=== PATIENT | male | born 1945 | race Caucasian/White ===

== ENCOUNTER 2019-10-12 10:13 | Outpatient (CLI) | payer MEDICARE, SELFPAY ==
[2019-10-12 10:34] LABS: Basophils Absolute Auto 0.06 K/mm3 (0.00-0.10); Basophils Percent Auto 0.8 % (0.0-1.0); Eosinophils Absolute Auto 0.54 K/mm3 (0.02-0.50); Eosinophils Percent Auto 7.2 % (1.0-6.0); Hematocrit 41.2 % (37.0-46.0); Hemoglobin 13.9 g/dL (12.4-15.3); Immature Granulocyte Absolute 0.02 K/mm3 (0.00-0.00); Immature Granulocyte Percent A 0.3 % (0.0-0.0); Lymphocytes Absolute Auto 1.64 K/mm3 (1.10-4.50); Lymphocytes Percent Auto 21.9 % (18.0-42.0); Mean Corpuscular HGB Conc 33.7 g/dL (32.0-36.0); Mean Corpuscular Hemoglobin 31.6 pg (27.0-31.0); Mean Corpuscular Volume 93.6 fL (78.0-102.0); Mean Platelet Volume 9.7 fl (8.7-11.0); Monocytes Percent Auto 9.4 % (2.0-11.0); Neutrophils Absolute Auto 4.5 K/mm3 (1.7-7.2); Neutrophils Percent Auto 60.4 % (50.0-70.0); Platelet Count Result 277 K/mm3 (150-420); Red Cell Distribution Width 13.3 % (11.6-14.4); White Blood Count 7.5 K/mm3 (4.8-10.8)
[2019-10-12 10:38] LABS: Add Urine Microscopic? NO; Appearance Urine Clear (Clear); Bilirubin Urine Negative (Negative); Blood Urine Negative (Negative); Color Urine Yellow (Yellow); Glucose Urine UA Negative (Negative); Ketones Urine Negative (Negative); Leukocyte Esterase Ur Negative LEU/UL (Negative); Nitrate Urine Negative (Negative); Protein Urine Negative (Negative); Urobilinogen Urine 0.2 mg/dL (0.2-1.0); pH Urine 6.5 (5.0-8.0)
[2019-10-12 11:25] LABS: Alanine Aminotransferase 18 U/L (16-63); Albumin Level 4.3 g/dL (3.4-5.0); Alkaline Phosphatase 92 U/L (46-116); Anion Gap 13.4 mmol/L (7-16); Aspartate Amino Transferase 17 U/L (15-37); Bilirubin,Total 0.5 mg/dL (0.00-1.00); Blood Urea Nitrogen 25 mg/dL (7-18); Calcium 8.9 mg/dL (8.5-10.1); Carbon Dioxide 28 mmol/L (21-32); Chloride 105 mmol/L (98-108); Cholesterol 141 mg/dL (0-200); Estimated Glomerular Filt Rate > 60; Glucose 98 mg/dL (70-99); HDL Direct 53 mg/dL (40-60); LDL Cholesterol Calculated 77 mg/dL (<130); Osmolality Calculated 298 mOsm/kg (285-295); Potassium 4.4 mmol/L (3.5-5.1); Prostate Specific Antigen 0.5 ng/mL (< OR = 4.0); Sodium 142 mmol/L (136-145); Total Protein 7.8 g/dL (6.4-8.2); Triglycerides 54 mg/dL (0-150)
[2019-10-16 14:34] LABS: Testosterone Free 29.9 pg/mL (30.0-135.0); Testosterone Total 388 ng/dL (250-1100)
== END 2019-10-12 10:14 | disposition home or self-care (01) ==
LOC: CHSLAB 10:21
PROVIDERS: PCP Internal Medicine; Visit Provider Internal Medicine
DX: E78.5 Hyperlipidemia, unspecified (principal); I10 Essential (primary) hypertension; Z12.5 Encounter for screening for malignant neoplasm of prostate
CPT/HCPCS: 36415; 80053; 80061; 81003; 84153; 84402; 84403; 85025; G0103

== ENCOUNTER 2020-01-13 13:30 | Outpatient (CLI) | payer MEDICARE, SELFPAY ==
[2020-01-18 12:04] LABS: Testosterone Free 39.5 pg/mL (30.0-135.0); Testosterone Total 395 ng/dL (250-1100)
== END 2020-01-13 13:31 | disposition home or self-care (01) ==
LOC: CHSLAB 13:32
PROVIDERS: PCP Internal Medicine; Visit Provider Internal Medicine
DX: E29.1 Testicular hypofunction (principal)
CPT/HCPCS: 36415; 84402; 84403

== ENCOUNTER 2020-10-26 09:19 | Outpatient (CLI) | payer MEDICARE, SELFPAY ==
[2020-10-26 09:37] LABS: Hematocrit 45.6 % (37.0-46.0); Hemoglobin 15.5 g/dL (12.4-15.3); Mean Corpuscular Hemoglobin 32.2 pg (27.0-31.0); Mean Corpuscular Volume 94.8 fL (78.0-102.0); Mean Platelet Volume 9.4 fl (8.7-11.0); Platelet Count Result 239 K/mm3 (150-420); Red Blood Count 4.81 M/mm3 (4.70-6.10); Red Cell Distribution Width 13.1 % (11.6-14.4); White Blood Count 5.6 K/mm3 (4.8-10.8)
[2020-10-26 09:38] LABS: Add Urine Microscopic? NO; Appearance Urine Clear (Clear); Bilirubin Urine Negative (Negative); Blood Urine Negative (Negative); Color Urine Yellow (Yellow); Glucose Urine UA Negative (Negative); Ketones Urine Negative (Negative); Leukocyte Esterase Ur Negative LEU/UL (Negative); Nitrate Urine Negative (Negative); Protein Urine Negative (Negative); Specific Grav Ur 1.025 (1.010-1.020); Urobilinogen Urine 0.2 mg/dL (0.2-1.0)
[2020-10-26 10:03] LABS: Band Neutrophils Percent 0 % (0-6); Eosinophils Percent Manual 9 % (1-6); Lymphocytes Absolute Manual 1.28 K/mm3 (1.1-4.5); Lymphocytes Percent Manual 23 % (18-44); Monocytes Absolute Manual 1.06 K/mm3 (0.1-0.90); Monocytes Percent Manual 19 % (3-9); Neutrophils Percent Manual 50 % (46-73); Platelet Estimate Adequate (Adequate); Total Cells Counted 100
[2020-10-26 10:24] LABS: Alanine Aminotransferase 27 U/L (16-63); Albumin Level 4.1 g/dL (3.4-5.0); Alkaline Phosphatase 95 U/L (46-116); Anion Gap 9 mmol/L (8-16); Aspartate Amino Transferase 21 U/L (15-37); Bilirubin,Total 0.3 mg/dL (0.00-1.00); Blood Urea Nitrogen 26 mg/dL (7-18); Calcium 9.4 mg/dL (8.5-10.1); Carbon Dioxide 27 mmol/L (21-32); Chloride 101 mmol/L (98-108); Cholesterol 141 mg/dL (0-200); Creatine Kinase 79 U/L (39-308); Estimated Glomerular Filt Rate > 60; Glucose 101 mg/dL (70-99); HDL Direct 43 mg/dL (40-60); LDL Cholesterol Calculated 84 mg/dL (<130); Osmolality Calculated 288 mOsm/kg (285-295); Potassium 4.4 mmol/L (3.5-5.1); Prostate Specific Antigen 0.9 ng/mL (< OR = 4.0); Sodium 137 mmol/L (136-145); Total Protein 7.3 g/dL (6.4-8.2); Triglycerides 71 mg/dL (0-150)
[2020-10-30 12:50] LABS: Testosterone Free 22.3 pg/mL (30.0-135.0); Testosterone Total 265 ng/dL (250-1100)
== END 2020-10-26 09:20 | disposition home or self-care (01) ==
LOC: CHSLAB 09:21
PROVIDERS: PCP Internal Medicine; Visit Provider Internal Medicine
DX: E78.5 Hyperlipidemia, unspecified (principal); I10 Essential (primary) hypertension; E29.1 Testicular hypofunction; R31.29 Other microscopic hematuria; Z12.5 Encounter for screening for malignant neoplasm of prostate
CPT/HCPCS: 36415; 80053; 80061; 81003; 82550; 84153; 84402; 84403; 85025; G0103

== ENCOUNTER 2020-11-06 14:57 | Outpatient (CLI) | payer MEDICARE, SELFPAY ==
--- NOTE | ~2020-11-06 | XR_ITS ---
XR lumbar spine 2-3V, XR sacroiliac joints min 3V 11/06/2020 15:16 Indication: Low back pain Procedure: 3 views lumbar spine and 4 views of the sacroiliac joints Comparison: Lumbar spine series dated 04/26/2008 Findings: There is dextroscoliosis centered at L3. There is wedge compression deformity at T12 and L1 which appears chronic. Mild chronic superior endplate compression deformity of L2. There is disc danni rowing at L3-4 and L5-S1. There is moderate lower lumbar facet hypertrophy. No significant abnormalit y of the sacroiliac joints. No evidence for ankylosis or ostial lysis. Sacral foramen are symmetric. Impression: 1: Moderate lumbar spondylosis with dextroscoliosis. 2: Mild wedge compression deformities of T12, L1 and L2, likely chronic. Reviewed, dictated and finalized at location A. LUTE PROFESSIONAL Impression: 1: Moderate lumbar spondylosis with dextroscoliosis. 2: Mild wedge compression deformities of T12, L1 and L2, likely chronic. Impression: 1: Moderate lumbar spondylosis with dextroscoliosis. 2: Mild wedge compression deformities of T12, L1 and L2, likely chronic.
== END 2020-11-06 14:58 | disposition home or self-care (01) ==
LOC: CHSIMG 15:00
PROVIDERS: PCP Internal Medicine; Visit Provider Internal Medicine
DX: M54.5 Low back pain (principal)
CPT/HCPCS: 72100; 72202

== ENCOUNTER 2021-04-16 13:48 | Outpatient (CLI) | payer MEDICARE, SELFPAY ==
[2021-04-16 14:07] LABS: Basophils Absolute Auto 0.07 K/mm3 (0.00-0.10); Basophils Percent Auto 0.8 % (0.0-1.0); Eosinophils Absolute Auto 0.58 K/mm3 (0.02-0.50); Eosinophils Percent Auto 6.3 % (1.0-6.0); Hematocrit 44.5 % (37.0-46.0); Hemoglobin 14.8 g/dL (12.4-15.3); Immature Granulocyte Absolute 0.04 K/mm3 (0.00-0.00); Immature Granulocyte Percent A 0.4 % (0.0-0.0); Lymphocytes Percent Auto 18.5 % (18.0-42.0); Mean Corpuscular HGB Conc 33.3 g/dL (32.0-36.0); Mean Corpuscular Hemoglobin 31.9 pg (27.0-31.0); Mean Corpuscular Volume 95.9 fL (78.0-102.0); Mean Platelet Volume 9.4 fl (8.7-11.0); Monocytes Absolute Auto 0.93 K/mm3 (0.10-0.90); Monocytes Percent Auto 10.1 % (2.0-11.0); Neutrophils Absolute Auto 5.9 K/mm3 (1.7-7.2); Neutrophils Percent Auto 63.9 % (50.0-70.0); Platelet Count Result 281 K/mm3 (150-420); Red Blood Count 4.64 M/mm3 (4.70-6.10); Red Cell Distribution Width 13.4 % (11.6-14.4); White Blood Count 9.2 K/mm3 (4.8-10.8)
[2021-04-16 15:10] LABS: Alanine Aminotransferase 20 U/L (16-63); Albumin Level 4.1 g/dL (3.4-5.0); Alkaline Phosphatase 96 U/L (46-116); Anion Gap 12 mmol/L (8-16); Aspartate Amino Transferase 17 U/L (15-37); Bilirubin,Total 0.3 mg/dL (0.00-1.00); Blood Urea Nitrogen 30 mg/dL (7-18); Calcium 9.3 mg/dL (8.5-10.1); Carbon Dioxide 25 mmol/L (21-32); Chloride 106 mmol/L (98-108); Cholesterol 132 mg/dL (0-200); Estimated Glomerular Filt Rate > 60; Glucose 90 mg/dL (70-99); HDL Direct 47 mg/dL (40-60); LDL Cholesterol Calculated 74 mg/dL (<130); Osmolality Calculated 302 mOsm/kg (285-295); Potassium 4.6 mmol/L (3.5-5.1); Sodium 143 mmol/L (136-145); Total Protein 7.4 g/dL (6.4-8.2); Triglycerides 57 mg/dL (0-150)
[2021-04-16 15:11] LABS: Add Urine Microscopic? NO; Appearance Urine Clear (Clear); Bilirubin Urine Negative (Negative); Blood Urine Negative (Negative); Color Urine Light Yellow (Yellow); Glucose Urine UA Negative (Negative); Ketones Urine Negative (Negative); Leukocyte Esterase Ur Negative (Negative); Nitrate Urine Negative (Negative); Protein Urine Negative (Negative); Urobilinogen Urine 0.2 mg/dL (0.2-1.0)
[2021-04-20 16:11] LABS: Testosterone Free 28.4 pg/mL (30.0-135.0); Testosterone Total 296 ng/dL (250-1100)
== END 2021-04-16 13:49 | disposition home or self-care (01) ==
LOC: CHSLAB 13:50
PROVIDERS: PCP Internal Medicine; Visit Provider Internal Medicine
DX: E78.2 Mixed hyperlipidemia (principal); I10 Essential (primary) hypertension
CPT/HCPCS: 36415; 80053; 80061; 81003; 84402; 84403; 85025

== ENCOUNTER 2021-10-11 10:03 | Outpatient (CLI) | payer MEDICARE, SELFPAY ==
[2021-10-11 10:32] LABS: Basophils Absolute Auto 0.08 K/mm3 (0.00-0.10); Basophils Percent Auto 0.9 % (0.0-1.0); Eosinophils Absolute Auto 0.54 K/mm3 (0.02-0.50); Eosinophils Percent Auto 5.8 % (1.0-6.0); Hematocrit 47.6 % (37.0-46.0); Hemoglobin 15.5 g/dL (12.4-15.3); Immature Granulocyte Absolute 0.04 K/mm3 (0.00-0.00); Immature Granulocyte Percent A 0.4 % (0.0-0.0); Lymphocytes Absolute Auto 1.48 K/mm3 (1.10-4.50); Mean Corpuscular HGB Conc 32.6 g/dL (32.0-36.0); Mean Corpuscular Hemoglobin 31.4 pg (27.0-31.0); Mean Corpuscular Volume 96.6 fL (78.0-102.0); Mean Platelet Volume 9.3 fl (8.7-11.0); Monocytes Absolute Auto 1.01 K/mm3 (0.10-0.90); Monocytes Percent Auto 10.9 % (2.0-11.0); Neutrophils Absolute Auto 6.1 K/mm3 (1.7-7.2); Platelet Count Result 264 K/mm3 (150-420); Red Blood Count 4.93 M/mm3 (4.70-6.10); Red Cell Distribution Width 14.4 % (11.6-14.4); White Blood Count 9.2 K/mm3 (4.8-10.8)
[2021-10-11 10:46] LABS: Add Urine Microscopic? NO; Appearance Urine Clear (Clear); Bilirubin Urine Negative (Negative); Blood Urine Negative (Negative); Color Urine Light Yellow (Yellow); Glucose Urine UA Negative (Negative); Ketones Urine Negative (Negative); Leukocyte Esterase Ur Negative (Negative); Nitrate Urine Negative (Negative); Protein Urine Negative (Negative); Specific Grav Ur 1.025 (1.010-1.020); Urobilinogen Urine 0.2 mg/dL (0.2-1.0)
[2021-10-11 11:26] LABS: Alanine Aminotransferase 20 U/L (16-63); Albumin Level 4.3 g/dL (3.4-5.0); Alkaline Phosphatase 92 U/L (46-116); Anion Gap 9 mmol/L (8-16); Aspartate Amino Transferase 15 U/L (15-37); Bilirubin,Total 0.5 mg/dL (0.00-1.00); Blood Urea Nitrogen 25 mg/dL (7-18); Calcium 9.3 mg/dL (8.5-10.1); Carbon Dioxide 29 mmol/L (21-32); Chloride 101 mmol/L (98-108); Cholesterol 147 mg/dL (0-200); Creatine Kinase 123 U/L (39-308); Estimated Glomerular Filt Rate > 60; Glucose 97 mg/dL (70-99); HDL Direct 48 mg/dL (40-60); LDL Cholesterol Calculated 89 mg/dL (<130); Osmolality Calculated 292 mOsm/kg (285-295); Potassium 4.5 mmol/L (3.5-5.1); Sodium 139 mmol/L (136-145); Total Protein 7.7 g/dL (6.4-8.2); Triglycerides 51 mg/dL (0-150)
[2021-10-15 14:49] LABS: Testosterone Free 77.1 pg/mL (30.0-135.0); Testosterone Total 707 ng/dL (250-1100)
== END 2021-10-11 10:04 | disposition home or self-care (01) ==
LOC: CHSLAB 10:04
PROVIDERS: PCP Internal Medicine; Visit Provider Internal Medicine
DX: E78.2 Mixed hyperlipidemia (principal); I10 Essential (primary) hypertension; I25.10 Atherosclerotic heart disease of native coronary artery without angina pectoris; Z12.5 Encounter for screening for malignant neoplasm of prostate
CPT/HCPCS: 36415; 80053; 80061; 81003; 82550; 84153; 84402; 84403; 85025; G0103

== ENCOUNTER 2022-04-17 09:40 | Outpatient (CLI) | payer MEDICARE, SELFPAY ==
[2022-04-17 09:56] LABS: Add Urine Microscopic? NO; Appearance Urine Clear (Clear); Basophils Absolute Auto 0.08 K/mm3 (0.00-0.10); Basophils Percent Auto 1.1 % (0.0-1.0); Bilirubin Urine Negative (Negative); Blood Urine Negative (Negative); Color Urine Light Yellow (Yellow); Eosinophils Absolute Auto 0.49 K/mm3 (0.02-0.50); Eosinophils Percent Auto 6.8 % (1.0-6.0); Glucose Urine UA Negative (Negative); Hematocrit 45.6 % (37.0-46.0); Immature Granulocyte Absolute 0.02 K/mm3 (0.00-0.00); Immature Granulocyte Percent A 0.3 % (0.0-0.0); Ketones Urine Negative (Negative); Leukocyte Esterase Ur Negative (Negative); Lymphocytes Absolute Auto 1.49 K/mm3 (1.10-4.50); Lymphocytes Percent Auto 20.7 % (18.0-42.0); Mean Corpuscular HGB Conc 32.9 g/dL (32.0-36.0); Mean Corpuscular Hemoglobin 32.1 pg (27.0-31.0); Mean Corpuscular Volume 97.4 fL (78.0-102.0); Mean Platelet Volume 9.5 fl (8.7-11.0); Monocytes Percent Auto 11.1 % (2.0-11.0); Neutrophils Absolute Auto 4.3 K/mm3 (1.7-7.2); Nitrate Urine Negative (Negative); Platelet Count Result 249 K/mm3 (150-420); Protein Urine Negative (Negative); Red Blood Count 4.68 M/mm3 (4.70-6.10); Red Cell Distribution Width 14.6 % (11.6-14.4); White Blood Count 7.2 K/mm3 (4.8-10.8)
[2022-04-17 10:31] LABS: Alanine Aminotransferase 14 U/L (16-63); Albumin Level 4.1 g/dL (3.4-5.0); Alkaline Phosphatase 96 U/L (46-116); Anion Gap 3 mmol/L (8-16); Aspartate Amino Transferase 14 U/L (15-37); Bilirubin,Total 0.4 mg/dL (0.00-1.00); Blood Urea Nitrogen 25 mg/dL (7-18); Calcium 9.1 mg/dL (8.5-10.1); Carbon Dioxide 31 mmol/L (21-32); Chloride 105 mmol/L (98-108); Cholesterol 128 mg/dL (0-200); Creatine Kinase 88 U/L (39-308); Estimated Glomerular Filt Rate 55; Glucose 100 mg/dL (70-99); HDL Direct 51 mg/dL (40-60); LDL Cholesterol Calculated 68 mg/dL (<130); Osmolality Calculated 292 mOsm/kg (285-295); Potassium 5.1 mmol/L (3.5-5.1); Sodium 139 mmol/L (136-145); Total Protein 7.5 g/dL (6.4-8.2); Triglycerides 47 mg/dL (0-150)
[2022-04-22 17:44] LABS: Testosterone Free 84.3 pg/mL (30.0-135.0); Testosterone Total 733 ng/dL (250-1100)
== END 2022-04-17 09:41 | disposition home or self-care (01) ==
LOC: CHSLAB 09:41
PROVIDERS: PCP Internal Medicine; Visit Provider Internal Medicine
DX: E78.2 Mixed hyperlipidemia (principal); I10 Essential (primary) hypertension
CPT/HCPCS: 36415; 80053; 80061; 81003; 82550; 84402; 84403; 85025

== ENCOUNTER 2022-10-16 09:42 | Outpatient (CLI) | payer MEDICARE, SELFPAY ==
[2022-10-16 10:03] LABS: Basophils Absolute Auto 0.08 K/mm3 (0.00-0.10); Basophils Percent Auto 1.3 % (0.0-1.0); Eosinophils Absolute Auto 0.45 K/mm3 (0.02-0.50); Hematocrit 44.2 % (37.0-46.0); Hemoglobin 14.7 g/dL (12.4-15.3); Immature Granulocyte Absolute 0.02 K/mm3 (0.00-0.00); Immature Granulocyte Percent A 0.3 % (0.0-0.0); Lymphocytes Absolute Auto 1.54 K/mm3 (1.10-4.50); Lymphocytes Percent Auto 24.1 % (18.0-42.0); Mean Corpuscular HGB Conc 33.3 g/dL (32.0-36.0); Mean Corpuscular Hemoglobin 32.8 pg (27.0-31.0); Mean Corpuscular Volume 98.7 fL (78.0-102.0); Mean Platelet Volume 9.5 fl (8.7-11.0); Monocytes Absolute Auto 0.58 K/mm3 (0.10-0.90); Monocytes Percent Auto 9.1 % (2.0-11.0); Neutrophils Absolute Auto 3.7 K/mm3 (1.7-7.2); Neutrophils Percent Auto 58.2 % (50.0-70.0); Platelet Count Result 229 K/mm3 (150-420); Red Blood Count 4.48 M/mm3 (4.70-6.10); Red Cell Distribution Width 13.3 % (11.6-14.4); White Blood Count 6.4 K/mm3 (4.8-10.8)
[2022-10-16 10:07] LABS: Add Urine Microscopic? NO; Appearance Urine Clear (Clear); Bilirubin Urine Negative (Negative); Blood Urine Negative (Negative); Color Urine Light Yellow (Yellow); Glucose Urine UA Negative (Negative); Ketones Urine Negative (Negative); Leukocyte Esterase Ur Negative (Negative); Nitrate Urine Negative (Negative); Protein Urine Negative (Negative); Specific Grav Ur >= 1.030 (1.010-1.020); Urobilinogen Urine 0.2 mg/dL (0.2-1.0)
[2022-10-16 11:06] LABS: Alanine Aminotransferase 15 U/L (16-63); Albumin Level 4.2 g/dL (3.4-5.0); Alkaline Phosphatase 97 U/L (46-116); Anion Gap 6 mmol/L (8-16); Aspartate Amino Transferase 25 U/L (15-37); Bilirubin,Total 0.5 mg/dL (0.00-1.00); Blood Urea Nitrogen 30 mg/dL (7-18); Carbon Dioxide 30 mmol/L (21-32); Chloride 102 mmol/L (98-108); Cholesterol 146 mg/dL (0-200); Estimated Glomerular Filt Rate > 60; Glucose 97 mg/dL (70-99); HDL Direct 49 mg/dL (40-60); LDL Cholesterol Calculated 85 mg/dL (<130); Osmolality Calculated 292 mOsm/kg (285-295); Potassium 4.3 mmol/L (3.5-5.1); Prostate Specific Antigen 0.8 ng/mL (< OR = 4.0); Sodium 138 mmol/L (136-145); Total Protein 7.3 g/dL (6.4-8.2); Triglycerides 62 mg/dL (0-150)
[2022-10-23 13:15] LABS: Testosterone Free 29.2 pg/mL (30.0-135.0); Testosterone Total 361 ng/dL (250-1100)
== END 2022-10-16 09:43 | disposition home or self-care (01) ==
LOC: CHSLAB 09:43
PROVIDERS: PCP Internal Medicine; Visit Provider Internal Medicine
DX: E29.1 Testicular hypofunction (principal); E78.2 Mixed hyperlipidemia; I10 Essential (primary) hypertension; Z12.5 Encounter for screening for malignant neoplasm of prostate
CPT/HCPCS: 36415; 80053; 80061; 81003; 84153; 84402; 84403; 85025; G0103

== ENCOUNTER 2023-04-11 09:43 | Outpatient (CLI) | payer MEDICARE, SELFPAY ==
[2023-04-11 10:06] LABS: Basophils Percent Auto 1.4 % (0.0-1.0); Eosinophils Absolute Auto 0.49 K/mm3 (0.02-0.50); Eosinophils Percent Auto 6.9 % (1.0-6.0); Hematocrit 48.3 % (37.0-46.0); Hemoglobin 16.1 g/dL (12.4-15.3); Immature Granulocyte Absolute 0.03 K/mm3 (0.00-0.00); Immature Granulocyte Percent A 0.4 % (0.0-0.0); Lymphocytes Absolute Auto 1.49 K/mm3 (1.10-4.50); Mean Corpuscular HGB Conc 33.3 g/dL (32.0-36.0); Mean Corpuscular Hemoglobin 32.5 pg (27.0-31.0); Mean Corpuscular Volume 97.6 fL (78.0-102.0); Mean Platelet Volume 9.6 fl (8.7-11.0); Monocytes Absolute Auto 0.66 K/mm3 (0.10-0.90); Monocytes Percent Auto 9.3 % (2.0-11.0); Neutrophils Absolute Auto 4.3 K/mm3 (1.7-7.2); Platelet Count Result 237 K/mm3 (150-420); Red Blood Count 4.95 M/mm3 (4.70-6.10); Red Cell Distribution Width 14.6 % (11.6-14.4); White Blood Count 7.1 K/mm3 (4.8-10.8)
[2023-04-11 10:07] LABS: Appearance Urine Clear (Clear); Bilirubin Urine Negative (Negative); Blood Urine Negative (Negative); Color Urine Light Yellow (Yellow); Glucose Urine UA Negative (Negative); Ketones Urine Negative (Negative); Leukocyte Esterase Ur Negative (Negative); Nitrate Urine Negative (Negative); Protein Urine Negative (Negative); Specific Grav Ur 1.025 (1.010-1.020); Urobilinogen Urine 0.2 mg/dL (0.2-1.0)
[2023-04-11 10:13] LABS: Add Urine Microscopic? NO
[2023-04-11 10:28] LABS: Hemoglobin A1C 5.4 % (<5.7)
[2023-04-11 11:04] LABS: Albumin Level 4.4 g/dL (3.4-5.0); Alkaline Phosphatase 104 U/L (46-116); Anion Gap 9 mmol/L (8-16); Aspartate Amino Transferase 17 U/L (15-37); Bilirubin,Total 0.7 mg/dL (0.00-1.00); Blood Urea Nitrogen 35 mg/dL (7-18); Calcium 9.4 mg/dL (8.5-10.1); Carbon Dioxide 29 mmol/L (21-32); Chloride 105 mmol/L (98-108); Cholesterol 160 mg/dL (0-200); Creatine Kinase 86 U/L (39-308); Estimated Glomerular Filt Rate 56; Free T3 2.12 pg/mL (2.18-3.98); Free T4 Free Thyroxine 0.87 ng/dL (0.76-1.46); Glucose 95 mg/dL (70-99); HDL Direct 58 mg/dL (40-60); LDL Cholesterol Calculated 93 mg/dL (<130); Osmolality Calculated 304 mOsm/kg (285-295); Potassium 4.7 mmol/L (3.5-5.1); Sodium 143 mmol/L (136-145); Thyroid Stimulating Hormone 1.91 uIU/mL (0.36-3.74); Total Protein 7.7 g/dL (6.4-8.2); Triglycerides 47 mg/dL (0-150)
[2023-04-11 11:13] LABS: Alanine Aminotransferase 13 U/L (16-63)
[2023-04-16 15:31] LABS: Testosterone Total 423 ng/dL (250-1100)
== END 2023-04-11 09:44 | disposition home or self-care (01) ==
LOC: CHSLAB 09:45
PROVIDERS: PCP Internal Medicine; Visit Provider Internal Medicine
DX: E78.2 Mixed hyperlipidemia (principal); I10 Essential (primary) hypertension; E29.0 Testicular hyperfunction; I25.10 Atherosclerotic heart disease of native coronary artery without angina pectoris; R73.01 Impaired fasting glucose
CPT/HCPCS: 36415; 80053; 80061; 81003; 82550; 83036; 84402; 84403; 84439; 84443; 84481; 85025

== ENCOUNTER 2023-10-15 09:22 | Outpatient (CLI) | payer MEDICARE, SELFPAY ==
[2023-10-15 09:38] LABS: Basophils Absolute Auto 0.08 K/mm3 (0.00-0.10); Basophils Percent Auto 0.9 % (0.0-1.0); Eosinophils Absolute Auto 0.58 K/mm3 (0.02-0.50); Eosinophils Percent Auto 6.7 % (1.0-6.0); Hematocrit 47.5 % (37.0-46.0); Hemoglobin 15.8 g/dL (12.4-15.3); Immature Granulocyte Absolute 0.04 K/mm3 (0.00-0.00); Immature Granulocyte Percent A 0.5 % (0.0-0.0); Lymphocytes Absolute Auto 1.58 K/mm3 (1.10-4.50); Lymphocytes Percent Auto 18.3 % (18.0-42.0); Mean Corpuscular HGB Conc 33.3 g/dL (32.0-36.0); Mean Corpuscular Hemoglobin 32.2 pg (27.0-31.0); Mean Corpuscular Volume 96.7 fL (78.0-102.0); Mean Platelet Volume 9.7 fl (8.7-11.0); Monocytes Absolute Auto 0.76 K/mm3 (0.10-0.90); Monocytes Percent Auto 8.8 % (2.0-11.0); Neutrophils Absolute Auto 5.6 K/mm3 (1.7-7.2); Neutrophils Percent Auto 64.8 % (50.0-70.0); Platelet Count Result 239 K/mm3 (150-420); Red Blood Count 4.91 M/mm3 (4.70-6.10); Red Cell Distribution Width 14.1 % (11.6-14.4); White Blood Count 8.6 K/mm3 (4.8-10.8)
[2023-10-15 09:40] LABS: Add Urine Microscopic? NO; Appearance Urine Clear (Clear); Bilirubin Urine Negative (Negative); Blood Urine Negative (Negative); Color Urine Light Yellow (Yellow); Glucose Urine UA Negative (Negative); Ketones Urine Negative (Negative); Leukocyte Esterase Ur Negative (Negative); Nitrate Urine Negative (Negative); Protein Urine Negative (Negative); Specific Grav Ur 1.025 (1.010-1.020)
[2023-10-15 10:30] LABS: Alanine Aminotransferase 18 U/L (16-63); Alkaline Phosphatase 89 U/L (46-116); Anion Gap 5 mmol/L (8-16); Aspartate Amino Transferase 18 U/L (15-37); Bilirubin,Total 0.5 mg/dL (0.00-1.00); Blood Urea Nitrogen 32 mg/dL (7-18); Calcium 8.8 mg/dL (8.5-10.1); Carbon Dioxide 32 mmol/L (21-32); Chloride 104 mmol/L (98-108); Cholesterol 138 mg/dL (0-200); Creatine Kinase 84 U/L (39-308); Estimated Glomerular Filt Rate > 60; Glucose 97 mg/dL (70-99); HDL Direct 49 mg/dL (40-60); LDL Cholesterol Calculated 81 mg/dL (<130); Osmolality Calculated 298 mOsm/kg (285-295); Potassium 4.7 mmol/L (3.5-5.1); Prostate Specific Antigen 0.9 ng/mL (< OR = 4.0); Sodium 141 mmol/L (136-145); Total Protein 7.1 g/dL (6.4-8.2); Triglycerides 38 mg/dL (0-150)
== END 2023-10-15 09:23 | disposition home or self-care (01) ==
LOC: CHSLAB 09:23
PROVIDERS: PCP Internal Medicine; Visit Provider Internal Medicine
DX: E29.1 Testicular hypofunction (principal); I10 Essential (primary) hypertension; E78.2 Mixed hyperlipidemia; N39.0 Urinary tract infection, site not specified; Z12.5 Encounter for screening for malignant neoplasm of prostate
CPT/HCPCS: 36415; 80053; 80061; 81003; 82550; 84153; 85025; 87086; 87088; G0103

== ENCOUNTER 2024-04-09 09:39 | Outpatient (CLI) | payer MEDICARE, SELFPAY ==
[2024-04-09 10:08] LABS: Basophils Absolute Auto 0.07 K/mm3 (0.00-0.10); Basophils Percent Auto 0.9 % (0.0-1.0); Eosinophils Absolute Auto 0.55 K/mm3 (0.02-0.50); Eosinophils Percent Auto 7.3 % (1.0-6.0); Hematocrit 46.2 % (37.0-46.0); Hemoglobin 15.4 g/dL (12.4-15.3); Immature Granulocyte Absolute 0.03 K/mm3 (0.00-0.00); Immature Granulocyte Percent A 0.4 % (0.0-0.0); Lymphocytes Absolute Auto 1.43 K/mm3 (1.10-4.50); Lymphocytes Percent Auto 18.9 % (18.0-42.0); Mean Corpuscular HGB Conc 33.3 g/dL (32-36); Mean Corpuscular Hemoglobin 32.2 pg (27.0-31.0); Mean Corpuscular Volume 96.7 fL (78.0-102.0); Mean Platelet Volume 9.5 fl (8.7-11.0); Monocytes Absolute Auto 0.76 K/mm3 (0.10-0.90); Monocytes Percent Auto 10.1 % (2.0-11.0); Neutrophils Absolute Auto 4.71 K/mm3 (1.70-7.20); Neutrophils Percent Auto 62.4 % (50.0-70.0); Platelet Count Result 248 K/mm3 (150-420); Red Blood Count 4.78 M/mm3 (4.70-6.10); Red Cell Distribution Width 14.1 % (11.6-14.4); White Blood Count 7.6 K/mm3 (4.8-10.8)
[2024-04-09 10:11] LABS: Add Urine Microscopic? NO; Appearance Urine Clear (Clear); Bilirubin Urine Negative (Negative); Blood Urine Negative (Negative); Color Urine Light Yellow (Yellow); Glucose Urine UA Negative (Negative); Ketones Urine Negative (Negative); Leukocyte Esterase Ur Negative (Negative); Nitrate Urine Negative (Negative); Protein Urine Negative (Negative); Specific Grav Ur 1.015 (1.010-1.020); Urobilinogen Urine 0.2 mg/dL (0.2-1.0); pH Urine 6.5 (5.0-8.0)
[2024-04-09 11:15] LABS: Alanine Aminotransferase 18 U/L (16-63); Alkaline Phosphatase 104 U/L (46-116); Anion Gap 5 mmol/L (4-12); Aspartate Amino Transferase 15 U/L (15-37); Bilirubin,Total 0.5 mg/dL (0.00-1.00); Blood Urea Nitrogen 24 mg/dL (7-18); Calcium 9.1 mg/dL (8.5-10.1); Carbon Dioxide 33 mmol/L (21-32); Chloride 104 mmol/L (98-108); Cholesterol 145 mg/dL (0-200); Estimated Glomerular Filt Rate 59; Glucose 95 mg/dL (70-99); HDL Direct 49 mg/dL (40-60); LDL Cholesterol Calculated 86 mg/dL (<130); Osmolality Calculated 298 mOsm/kg (285-295); Potassium 4.8 mmol/L (3.5-5.1); Sodium 142 mmol/L (136-145); Total Protein 7.4 g/dL (6.4-8.2); Triglycerides 52 mg/dL (0-150)
[2024-04-15 10:04] LABS: Testosterone Free 63.2 pg/mL (30.0-135.0); Testosterone Total 564 ng/dL (250-1100)
== END 2024-04-09 09:40 | disposition home or self-care (01) ==
LOC: CHSLAB 09:41
PROVIDERS: PCP Internal Medicine; Visit Provider Internal Medicine
DX: I10 Essential (primary) hypertension (principal); E78.2 Mixed hyperlipidemia; I25.10 Atherosclerotic heart disease of native coronary artery without angina pectoris
CPT/HCPCS: 36415; 80053; 80061; 81003; 84402; 84403; 85025

== ENCOUNTER 2024-05-04 12:05 | Outpatient (CLI) | payer MEDICARE, SELFPAY ==
--- NOTE | 2024-06-23 08:19 | WPDHOLTEREM ---
Holter/Event Monitor Holter/Event Monitor Date of procedure: 05/04/24 Holter/Event Procedure: Event Monitor Indications: Bradycardia Conclusion: 1. 28 days event monitor between 05/04/24-06/02/24. There are 69 available transmissions for analysis. 2. Predominant rhythm is sinus rhythm. HR range 50-167 bpm; average HR 69 bpm. 3. There are frequent premature supraventricular complexes with total burden of 14%. No supraventricular tachycardia. 4. There are frequent premature ventricular complexes with totla burden of 11%. There are 22 episodes of ventricular tachycardia, fastest at 167 bpm and longest is 5 beats. No sustained ventricular tachycardia. 5. No significant pauses greater than 2 seconds. 6. Patient reports 5 episodes of symptoms of shortness of breath, heart racing and symptom other than listed which demonstrate sinus rhythm, HR range 66-112 bpm with all 5 episodes with PVC's.
== END 2024-05-04 12:06 | disposition home or self-care (01) ==
PROVIDERS: PCP Internal Medicine; Visit Provider Internal Medicine
DX: R00.1 Bradycardia, unspecified (principal)
CPT/HCPCS: 93270

== ENCOUNTER 2024-07-09 15:28 | Outpatient (CLI) | payer MEDICARE, SELFPAY ==
[2024-07-09 15:43] LABS: Basophils Absolute Auto 0.08 K/mm3 (0.00-0.10); Basophils Percent Auto 0.9 % (0.0-1.0); Eosinophils Absolute Auto 0.58 K/mm3 (0.02-0.50); Eosinophils Percent Auto 6.4 % (1.0-6.0); Hematocrit 48.1 % (37.0-46.0); Hemoglobin 16.2 g/dL (12.4-15.3); Immature Granulocyte Absolute 0.04 K/mm3 (0.00-0.00); Immature Granulocyte Percent A 0.4 % (0.0-0.0); Lymphocytes Percent Auto 18.8 % (18.0-42.0); Mean Corpuscular HGB Conc 33.7 g/dL (32-36); Mean Corpuscular Hemoglobin 32.2 pg (27.0-31.0); Mean Corpuscular Volume 95.6 fL (78.0-102.0); Mean Platelet Volume 9.4 fl (8.7-11.0); Monocytes Absolute Auto 0.98 K/mm3 (0.10-0.90); Monocytes Percent Auto 10.8 % (2.0-11.0); Neutrophils Absolute Auto 5.67 K/mm3 (1.70-7.20); Neutrophils Percent Auto 62.7 % (50.0-70.0); Platelet Count Result 271 K/mm3 (150-420); Red Blood Count 5.03 M/mm3 (4.70-6.10); White Blood Count 9.1 K/mm3 (4.8-10.8)
[2024-07-09 16:25] LABS: Anion Gap 9 mmol/L (4-12); Blood Urea Nitrogen 36 mg/dL (7-18); Calcium 9.5 mg/dL (8.5-10.1); Carbon Dioxide 31 mmol/L (21-32); Chloride 105 mmol/L (98-108); Estimated Glomerular Filt Rate 57; Free T4 Free Thyroxine 0.88 ng/dL (0.76-1.46); Glucose 95 mg/dL (70-99); Magnesium 2.7 mg/dL (1.8-2.4); Osmolality Calculated 308 mOsm/kg (285-295); Sodium 145 mmol/L (136-145)
== END 2024-07-09 15:29 | disposition home or self-care (01) ==
PROVIDERS: PCP Internal Medicine; Visit Provider Internal Medicine
DX: I47.29 Other ventricular tachycardia (principal); I10 Essential (primary) hypertension; E78.2 Mixed hyperlipidemia
CPT/HCPCS: 36415; 80048; 83735; 84439; 84443; 85025

== ENCOUNTER 2024-10-18 10:00 | Outpatient (CLI) | payer MEDICARE, SELFPAY ==
[2024-10-18 10:47] LABS: Hematocrit 49.3 % (37.0-46.0); Hemoglobin 16.2 g/dL (12.4-15.3); Mean Corpuscular HGB Conc 32.9 g/dL (32-36); Mean Corpuscular Hemoglobin 31.5 pg (27.0-31.0); Mean Corpuscular Volume 95.9 fL (78.0-102.0); Mean Platelet Volume 9.9 fl (8.7-11.0); Platelet Count Result 247 K/mm3 (150-420); Red Blood Count 5.14 M/mm3 (4.70-6.10); Red Cell Distribution Width 13.4 % (11.6-14.4); White Blood Count 7.3 K/mm3 (4.8-10.8)
[2024-10-18 10:50] LABS: Add Urine Microscopic? NO; Appearance Urine Clear (Clear); Bilirubin Urine Negative (Negative); Blood Urine Negative (Negative); Color Urine Light Yellow (Yellow); Glucose Urine UA Negative (Negative); Ketones Urine Negative (Negative); Leukocyte Esterase Ur Negative LEU/UL (Negative); Nitrate Urine Negative (Negative); Protein Urine Negative (Negative); Specific Grav Ur 1.015 (1.010-1.020); Urobilinogen Urine 0.2 mg/dL (0.2-1.0); pH Urine 6.5 (5.0-8.0)
[2024-10-18 11:20] LABS: Alanine Aminotransferase 19 U/L (16-63); Albumin Level 4.4 g/dL (3.4-5.0); Alkaline Phosphatase 118 U/L (46-116); Anion Gap 6 mmol/L (4-12); Aspartate Amino Transferase 18 U/L (15-37); Bilirubin,Total 0.6 mg/dL (0.00-1.00); Blood Urea Nitrogen 28 mg/dL (7-18); Calcium 9.3 mg/dL (8.5-10.1); Carbon Dioxide 31 mmol/L (21-32); Chloride 103 mmol/L (98-108); Cholesterol 172 mg/dL (0-200); Creatine Kinase 97 U/L (39-308); Estimated Glomerular Filt Rate 58; Glucose 99 mg/dL (70-99); HDL Direct 57 mg/dL (40-60); LDL Cholesterol Calculated 104 mg/dL (<130); Osmolality Calculated 295 mOsm/kg (285-295); Prostate Specific Antigen 0.8 ng/mL (< OR = 4.0); Sodium 140 mmol/L (136-145); Total Protein 7.8 g/dL (6.4-8.2); Triglycerides 55 mg/dL (0-150)
--- OUTSIDE RECORDS SUMMARY | 2024-10-18 12:52 | XMS_ITS | Clinical Summary ---
Author Organization [facility] Address Formerly [facility] [place] [address] Care Team Providers Care Fur Weigher Name Role Phone Sebastián Alvarez MD Primary Care Provider [phone] Medications EFFEXOR XR 75 MG 24 hr capsule Take 1 tablet by mouth daily. 2 Active testosterone cypionate (DEPO TESTOSTERONE) 200 MG/ML injection 4 Active ZOCOR 40 MG tablet Zocor (simvastatin) tablet 40 mg; take 1 tablet by mouth at bedtime; 30; 12; 17-Jun-2012; Active 2 Active nitroglycerin (NITROSTAT) 0.4 MG SL tablet Nitrostat (nitroglycerin) tablet, sublingual 0.4 mg; take 1 tablet under tongue, for chest pain as directed; 25; ; 17-Jun-2012; Active 2 Active NIFEdipine ER (ADALAT CC) 90 MG 24 hr tablet Take 1 tablet (90 mg total) by mouth daily. 4 Active clopidogrel (PLAVIX) 75 MG tablet Take 1 tablet (75 mg total) by mouth daily. Active metoprolol succinate ER (TOPROL-XL) 25 MG 24 hr tablet Take 0.5 tablets (12.5 mg total) by mouth daily. Active Active Problems Problem Noted Date Diagnosed Date VT (ventricular tachycardia) (CMS/HCC [facility]/HCC) 1 09/13/2023 Encounters Date Type Department Care Team Description 08/26[facility]2024 [facility] [address] [place] [address] Augustin Witt MD Information 08/26/2024 Telephone [facility] [address] [place] [address] Augustin Witt MD Results 08/20/2024 Scan [facility] [address] [place] [address] Scanned, Doc Pccl ECG (SCAN) 07/20/2024 Telephone [facility] [address] [place] [address] Augustin Witt MD Results from Last 3 Months Family History Medical History Relation Comments COPD Father Colon Cancer Father Relation Status Comments Father Social History Tobacco Use Types Packs/Day Years Used Date Smoking Tobacco: Former Cigarettes Q uit: 2002 Smokeless Tobacco: Never Tobacco Cessation:Counseling Given: Not Answered Alcohol Use Standard Drinks/Week Comments Not Currently 0 (1 standard drink = 0.6 oz pur e alcohol) Sex and Gender Information Value Date Recorded Sex Assigned at Not on file Legal Sex Male 11:37 PM CDT Gender Identity Not on file Sexual Orientation Not on file Last Filed Vital Signs Vital Sign Reading Time Taken Comments Blood Pressure 124/60 11/02/2014 12:44 PM AUTOMOTIVE EXHAUST EMISSIONS TECHNICIAN Pulse 55 07/14/2024 2:19 PM AUTOMOTIVE EXHAUST EMISSIONS TECHNICIAN Temperature - - Respiratory Rate 16 11/02/2014 12:44 PM AUTOMOTIVE EXHAUST EMISSIONS TECHNICIAN Oxygen Saturation 97% 07/14/2024 2:19 PM AUTOMOTIVE EXHAUST EMISSIONS TECHNICIAN Inhaled Oxygen Concentration - - Weight 97.1 kg (214 lb) 11/02/2014 12:44 PM AUTOMOTIVE EXHAUST EMISSIONS TECHNICIAN Height 175.3 cm (5' 9 ) 07/14/2024 2:19 PM AUTOMOTIVE EXHAUST EMISSIONS TECHNICIAN Body Mass Index 31.15 11/02/2014 12:44 PM AUTOMOTIVE EXHAUST EMISSIONS TECHNICIAN Plan of Treatment Upcoming Encounters Date Type Department Care Team (Late st Contact Info) Description 01/26/2025 9:30 AM CDT Office Visit [facility] [place] [address] Augustin Witt MD [address] [place], [place] [address] Health Maintenance Due Date Last Done Comments Hepatitis C 01/07/1963 Zoster Vaccines (1 of 2) 01/07/1996 Annual Medicare Wellness Visit 2011 ASCVD LDL 06/29/2015 06/29/2014 DTaP, Tdap and Td Vaccines (2 - Td or Tdap) 01/18/2034 01/19/2024 Pneumococcal Vaccine: 65+ Years Completed 01/19/2024 RSV Immunization or 60+ Years Completed 03/29/2024 COVID-19 Vaccine Completed 05/14/2024, , 12/03/2021, Additional history exists Influenza Adult Completed 05/14/2024 Meningococcal B Vaccine Aged Out No l onger eligible based on patient's age to complete this topic Meningococcal Vaccine Aged Out No kirk kimmie eligible based on patient's age to complete this topic RSV Immunizations Under 20 Months Aged Out No longer eligible based on patient's age to complete this topic Procedures Procedure Name Priority Date/Time Associated Diagnosis Comments ECG GENERIC (SCAN ORDER) Routine 08/20/2024 12:00 AM AUTOMOTIVE EXHAUST EMISSIONS TECHNICIAN LIPID PANEL Routine 06/29/2014 12:00 AM CDT from Last 3 Months or Most Recently Relevant to Health Maintenance Results * ECG (08/20/2024 12:00 AM AUTOMOTIVE EXHAUST EMISSIONS TECHNICIAN) 08/20/2024 us Doc Pccl Scanned SCANNING Final Result [facility] * LIPID PANEL (06/29/2014 12:00 AM CDT) TRIGLYCERIDES 41 0 - 150 mg/dl MEDINFORMATIX TO EPIC CONVERSION CHOLESTEROL 139 0 - 200 mg/dl MEDINFORMATIX TO EPIC CONVERSION HDL 51 40 - 59 mg/dl MEDINFORMATIX TO EPIC CONVERSION LDL CONVERSION 80 0 - 100 mg/dl MEDINFORMATIX TO EPIC CONVERSION CHOL/HDL RATIO 2.7 <4.0 (Calc) MEDINFORMATIX TO EPIC CONVERSION LDL/HDL 1.6 <3.0 Calc MEDINFORMA TIX TO EPIC CONVERSION 06/29/2014 06/29/2014 us Generic Conversion Md [facility] Final R esult MEDINFORMATIX TO EPIC CONVERSION from Last 3 Months or Most Recently Relevant to Health Maintenance Insurance [facility]ICARE [facility] INSURANCE Care Teams Fur Weigher Relationship Specialty Start Date End Date Sebastián Alvarez MD [address] [place] [address] PCP - General INTERNAL MEDICINE 07/13/24
== END 2024-10-18 10:01 | disposition home or self-care (01) ==
LOC: CHSLAB 10:02
PROVIDERS: PCP Internal Medicine; Visit Provider Internal Medicine
DX: E78.2 Mixed hyperlipidemia (principal); N39.0 Urinary tract infection, site not specified; Z12.5 Encounter for screening for malignant neoplasm of prostate; E29.1 Testicular hypofunction
CPT/HCPCS: 36415; 80053; 80061; 81003; 82550; 84153; 84402; 84403; 85027; G0103

== ENCOUNTER 2025-03-25 09:02 | Outpatient (CLI) | payer MEDICARE, SELFPAY ==
[2025-03-25 09:21] LABS: Hematocrit 50.3 % (37.0-46.0); Hemoglobin 16.5 g/dL (12.4-15.3); Immature Granulocyte Percent A 0.4 % (0.0-0.0); Lymphocytes Absolute Auto 1.50 K/mm3 (1.10-4.50); Mean Corpuscular HGB Conc 32.8 g/dL (32-36); Mean Corpuscular Hemoglobin 31.7 pg (27.0-31.0); Mean Corpuscular Volume 96.7 fL (78.0-102.0); Nucleated Red Blood Cells Absolute Auto 0.00 K/mm3 (0.00-0.00); Nucleated Red Blood Cells Perc 0.0 % (0-0.0); Platelet Count Result 253 K/mm3 (150-420); Red Blood Count 5.20 M/mm3 (4.70-6.10); White Blood Count 8.5 K/mm3 (4.8-10.8)
[2025-03-25 09:22] LABS: Add Urine Microscopic? NO; Appearance Urine Clear (Clear); Glucose Urine UA Negative (Negative); Leukocyte Esterase Ur Negative (Negative); Nitrate Urine Negative (Negative); Specific Grav Ur 1.020 (1.010-1.020)
[2025-03-25 09:42] LABS: Alanine Aminotransferase 14 U/L (6-50); Albumin Level 4.7 g/dL (3.5-5.1); Alkaline Phosphatase 87 U/L (38-126); Anion Gap 7 mmol/L (4-12); Aspartate Amino Transferase 26 U/L (17-59); Bilirubin,Total 0.8 mg/dL (0.2-1.3); Blood Urea Nitrogen 32 mg/dL (9-20); Calcium 9.2 mg/dL (8.4-10.2); Carbon Dioxide 30 mmol/L (22-30); Chloride 104 mmol/L (98-107); Cholesterol 155 mg/dL (0-200); Creatine Kinase 74 U/L (55-170); Estimated Glomerular Filt Rate > 60; Glucose 94 mg/dL (65-110); HDL Direct 58 mg/dL; Magnesium 2.4 mg/dL (1.6-2.3); Osmolality Calculated 298 mOsm/kg (285-295); Potassium 4.8 mmol/L (3.4-5.0); Sodium 141 mmol/L (137-145); Total Protein 7.4 g/dL (6.3-8.2); Triglycerides 66 mg/dL (<150)
[2025-03-25 09:51] LABS: NT Pro B Type Natriuretic Pept 261 pg/mL (19.9-100)
[2025-03-25 09:59] LABS: Free T4 Free Thyroxine 0.96 ng/dL (0.78-2.19)
[2025-03-25 10:13] LABS: Thyroid Stimulating Hormone 2.150 uIU/mL (0.465-4.680)
[2025-03-29 22:07] LABS: Free Testosterone (Direct) 2.1 pg/mL (6.6-18.1)
== END 2025-03-25 09:03 | disposition home or self-care (01) ==
PROVIDERS: PCP Internal Medicine; Visit Provider Internal Medicine
DX: E78.2 Mixed hyperlipidemia (principal); I10 Essential (primary) hypertension; I25.10 Atherosclerotic heart disease of native coronary artery without angina pectoris; I47.29 Other ventricular tachycardia; E29.1 Testicular hypofunction; R06.00 Dyspnea, unspecified
CPT/HCPCS: 36415; 80053; 80061; 81003; 82550; 83735; 83880; 84402; 84439; 84443; 85025

== ENCOUNTER 2025-05-05 13:53 | Outpatient (CLI) | payer MEDICARE, SELFPAY ==
--- OUTSIDE RECORDS SUMMARY | 2025-05-05 14:14 | XMS_ITS | Clinical Summary ---
Author Organization [facility] Address [address] [place] [address] Care Team Providers Care Dip Guider Stoves Name Role Phone Amy Fletcher MD Primary Care Provider [phone] Augustin Powers MD Unavailable [phone] Jo-Ann Ashton PA-C Unavailable [phone] Medications EFFEXOR XR 75 MG 24 hr [...] (12.5 mg total) by mouth daily. Active aspirin EC 81 MG tablet Take 1 tablet (81 mg total) by mouth daily. Active Active Problems Problem Noted Date Diagnosed Date PVC (premature ventricular contraction) 03/09/20 25 Bradycardia 03/09/2025 VT (ventricular tachycardia) ([facility]) 1 09/13/2023 Encounters Date Type Department Care Team Description 05/03/2025 Results Follow-Up [facility] [address] [place] [address] Susan Cade [facility] - HOLTER MONITOR 48 HR REC ([id number]) 03/09/2025 11:15 AM CDT Office Visit [facility] [place] [address] [place] [address] Augustin Powers MD Follow Up 03/09/2025 10:48 AM CDT - 03/09/2025 11:59 PM CDT Hospital Encounter [facility] [place] [address] Augustin Powers MD Discharge Disposition: Home or Self Care (Routine Discharge) 03/09/2025 Travel 03/08/2025 Orders Only [facility] [place] [place] [address] Augustin Powers MD 03/08/2025 Telephone [facility] [address] [place] [facility] [place] [place] [address] Augustin Powers MD Appointment Reminder 03/03/2025 Scan [facility] [address] [place] [place] [place] [address] Scanned, Doc Pccl ECG (SCAN) from Last 3 Months Family History Medical [...] Sign Reading Time Taken Comments Blood Pressure 146/67 03/09/2025 11:18 AM CDT Pulse 70 03/09/2025 11:18 AM CDT EKG Temperature - - Respiratory Rate 16 03/09/2025 11:18 AM CDT Oxygen Saturation 99% 03/09/2025 11:18 AM CDT Inhaled Oxygen Concentration - - Weight 77.1 kg (170 lb) 03/09/2025 11:18 AM CDT Height 175.3 cm (5' 9) 03/09/2025 11:18 AM CDT Body Mass Index 25.1 03/09/2025 11:18 AM CDT Plan of Treatment Upcoming Encounters Date Type Department Care Team (Late st Contact Info) Description 09/28/2025 12:30 PM COMMUNITY DIETITIAN Office Visit [facility] [place] [address] Jo-Ann Ashton PA-C [address] [place] [address] Health Maintenance Due Date Last Done Comments Hepatitis C 01/07/1964 Zoster Vaccines (1 of 2) 01/07/1996 Annual Medicare Wellness Visit 2011 ASCVD LDL 06/29/2015 06/29/2014 COVID-19 Vaccine ( season) 2025 05/14/2024, 05/21/2022, 12/03/2021, Additional history exists DTaP, Tdap and Td Vaccines (2 - Td or Tdap) 01/18/2034 01/19/2024 Pneumococcal Vaccine: 50+ Years Completed 01/19/2024 RSV Immunization or 60+ Years Completed 03/29/2024 Meningococcal B Vaccine Aged Out No l onger eligible based on patient's age to complete this topic Meningococcal Vaccine Aged Out No kirk kimmie eligible based on patient's age to complete this topic RSV Immunizations Under 20 Months Aged Out No longer eligible based on patient's age to complete this topic Procedures Procedure Name Priority Date/Time Associated Diagnosis Comments HOLTER MONITOR 48 HR REC Routine 03/09/2025 12:15 PM CDT PVC (premature ventricular contraction) Bradycardia ECG 12-LEAD Routine 03/09/2025 10:56 AM CDT PVC (premature ventricular contraction) Bradycardia ECG GENERIC (SCAN ORDER) Routine 03/03/2025 LIPID PANEL Routine 06/29/2014 12:00 AM CDT from Last 3 Months or Most Recently Relevant to Health Maintenance Results * HOSPITAL - HOLTER MONITOR 48 HR REC ([id number]) (03/09/2025 12:15 PM CDT) 03/09/2025 12:1 5 PM CDT Narrative ESCRIPTION - 03/17/2025 8:45 PM CDT Patient Name: SYDNEY ROBERT Date of : 1945 Account: [id number] Facility: [facility] Date of Service: 03/09/2025 Holter Monitor DATE OF MONITORIN03/09/2025 through 03/11/2025 ORDERING PHYSICIAN: Augustin Powers M.D. INTERPRETING PHYSICIAN: Augustin Powers M.D. INDICATION: PVCs. FINDINGS: 1. Baseline rhythm: The baseline rhythm was sinus rhythm with frequent PVCs. 2. Sinus node function: There is no evidence for sinus node dysfunction in this monitoring. Average rate of 74 beats per minute and a maximum heart rate of 133 beats per minute. 3. AV conduction: There was no evidence for significant AV block or pauses longer than 3 seconds. 4. Atrial arrhythmias: No significant atrial arrhythmias were noted. Rare PACs with less than 1% burden noted. 5. Ventricular arrhythmias: No sustained ventricular arrhythmias noted. Frequent monomorphic PVCs with 32.2% burden was noted on this monitoring. Brief runs of nonsustained ventricular tachycardia lasting up to 8 beats were noted. 6. Symptoms: The patient did not report any symptoms. IMPRESSION: 1. Frequent monomorphic PVCs with 32% burden was noted in this monitoring. 2. The patient did not have any significant bradycardia seen in this monitoring and had good heart rates with an average heart rate of 74 beats per minute. 3. No other significant atrial or ventricular arrhythmias were noted in this monitoring. Signature/Date: AUGUSTIN POWERS #[id number] /PRA A copy of this report has been sent to: AMY FLETCHER MD([employer]) Augustin Powers MD HOLTER Final Res ult ESCRIPTION * ECG 12 lead (HOSPITAL PERFORMED ONLY) (03/09/2025 10:56 AM CDT) 03/09/2025 10:5 6 AM CDT Narrative [facility] - 03/13/2025 6:11 AM CDT [address] [place] [address] Test Date: 2025-03-09 Pat Name: SYDNEY ROBERT Department: 3 Room: Gender: Male Record Changer Tester: ADALBERTO MCDANIELSB: 1945 Requested By: AUGUSTIN POWERS Order Number: [id number] Reading MD: Augustin Powers Measurements Intervals [place] Rate: 70 P: 15 GA: 174 QRS: -2 QRSD: 162 T: 30 QT: 406 QTc: 440 Interpretive Statements SINUS RHYTHM WITH FREQUENT VENTRICULAR PREMATURE COMPLEXES IN A BIGEMINAL PATTERN RIGHT BUNDLE BRANCH BLOCK Procedure Note Augustin Powers MD - 03/13/[address] [place] [address] Test Date: 2025-03-09 Pat Name: SYDNEY ROBERT Department: 3 Room: Gender: Male Record Changer Tester: ADALBERTO : 1945 Requested By: AUGUSTIN POWERS Order Number: [id number] Reading MD: Augustin Powers Measurements Intervals [place] Rate: 70 P: 15 GA: 174 QRS: -2 QRSD: 162 T: 30 QT: 406 QTc: 440 Interpretive Statements SINUS RHYTHM WITH FREQUENT VENTRICULAR PREMATURE COMPLEXES IN ABIGEMINAL PATTERN RIGHT BUNDLE BRANCH BLOCK us Augustin Powers MD ECG ORDERABLES Final Res ult [facility] [place] [facility] * ECG (03/03/2025) us Doc Pccl Scanned SCANNING Final Result [facility] * LIPID PANEL (06/29/2014 12:00 AM [...] Conversion Md [facility] Final R esult Performing Organization Address [facility] Co de Phone Number MEDINFORMATIX TO EPIC CONVERSION from Last 3 Months or Most Recently Relevant to Health Maintenance Insurance MED[employer]ARE [employer] INSUR[employer] Care Teams Dip Guider Stoves Relationship Specialty Start Date End Date Amy Fletcher MD [address] [place] [phone] PCP - General INTERNAL MEDICINE 07/13/24 Augustin Powers MD [address] [place] [address] Consulting Physician CLINICAL CARDIAC ELECTROPHYSIOLOGY 01/07/25 Jo-Ann Ashton PA-C [address] [place] [address] Referring Physician PHYSICIAN PRODUCTION SUPPORT SPECIALIST 01/24/25
--- NOTE | 2025-05-06 16:05 | WPDHOLTEREM ---
Holter/Event Monitor Holter/Event Monitor Date of procedure: 05/05/25 Holter/Event Procedure: 24 Hr Holter Monitor Indications: Bradycardia Conclusion: 1. 24 hour holter monitor on 05/05/25. 2. Predominant rhythm is sinus rhythm. HR range 45-82 bpm; average HR 64 bpm. HR at 45 bpm was at 4:43 am. 3. There are 271 premature supraventricular complexes, 8 supraventricular trigeminy. No supraventricular tachycardia. 4. There are 11, 676 premature ventricular complexes, 2,130 ventricular couplets, 364 ventricular triplets, 6,964 ventricular bigeminy and 2,702 ventricular trigeminy. There are 38 episodes of ventricular tachycardia with fastest at 132 bpm and longest lasting 6 beats. 5. No significant pauses greater than 2 seconds. 6. No symptoms available for correlation.
== END 2025-05-05 13:54 | disposition home or self-care (01) ==
PROVIDERS: PCP Internal Medicine; Visit Provider Internal Medicine
DX: R00.1 Bradycardia, unspecified (principal)
CPT/HCPCS: 93225; 93226

== ENCOUNTER 2025-06-03 09:39 | Outpatient (CLI) | payer MEDICARE, SELFPAY ==
--- NOTE | ~2025-06-03 | CT_ITS ---
EXAMINATION: CT abdomen wo/w con DATE: 06/03/2025 10:46 INDICATION: Right renal neoplasm. TECHNIQUE: Computed tomography (CT) of the abdomen was performed without and with 100 mL Omnipaque 350 intravenous contrast. Automated exposure control and iterative reconstruction technique were employed. The dose-length product was 470.79 mGy-cm. COMPARISON: None. FINDINGS: The visualized portions of the lung bases demonstrate mild atelectasis. A calcified left lung nodule is consistent with the old granulomatous disease. There is a 2 mm nodule in left lower lobe, likely benign. No pleural effusion. The heart size is normal. There are coronary artery calcifications. No pericardial effusion. The liver is normal. Calcifications in the spleen are consistent with old granulomatous disease. There are gallstones in the gallbladder which is normal in size. The pancreas and adrenal glands are normal. There is cortical thinning of the kidneys, worst in right kidney upper pole. There are cysts in the kidneys measuring up to 7 mm on the right. There are vascular calcifications at the mehnaz of the kidneys. There are no dilated loops of bowel. The appendix is not visualized. There are no pathologically enlarged lymph nodes. There is no ascites. There is severe lower lumbar spondylosis. There is chronic height loss of multiple vertebral bodies. There are chronic compression fractures of T12 and L1. IMPRESSION: 1. Small cysts in the kidneys. Reviewed, dictated and finalized at location E.
[2025-06-03 10:10] LABS: Estimated Glomerular Filt Rate 59
== END 2025-06-03 09:40 | disposition home or self-care (01) ==
LOC: CHSIMG 09:39
PROVIDERS: PCP Internal Medicine; Visit Provider Internal Medicine
DX: D41.01 Neoplasm of uncertain behavior of right kidney (principal); N28.1 Cyst of kidney, acquired
CPT/HCPCS: 74170; Q9967